=== PATIENT | female | born 1955 | race Caucasian/White ===

== ENCOUNTER 2020-05-01 10:41 | Inpatient (IN) | payer BC, OTHER ==
[~2020-05-01] VITALS: Ht 157.5 cm; Wt 62.6 kg
[~2020-05-01 10:41] MED LIST: ALBU90OI6; PRED10 PO
[2020-05-01 11:06] LABS: BASOPHILS ABSOLUTE AUTO 0.06 K/mm3 (0.00-0.23); BASOPHILS PERCENT AUTO 1 % (0-2); EOSINOPHILS ABSOLUTE AUTO 0.18 K/mm3 (0.00-0.68); EOSINOPHILS PERCENT AUTO 3 % (0-6); Hematocrit 47.3 % (33.0-51.0); Hemoglobin 15.7 g/dL (11.5-16.0); IMMATURE GRAN ABSOLUTE AUTO 0.01 K/mm3 (0.00-0.10); IMMATURE GRAN PERCENT AUTO 0 % (0-1); LYMPHOCYTES ABSOLUTE AUTO 1.69 K/mm3 (0.84-5.20); LYMPHOCYTES PERCENT AUTO 23 % (21-46); MONOCYTES ABSOLUTE AUTO 0.79 K/mm3 (0.16-1.47); MONOCYTES PERCENT AUTO 11 % (4-13); Mean Corpuscular HGB Conc 33.2 g/dL (31.5-36.5); Mean Corpuscular Volume 96 fL (80-100); Mean Platelet Volume 9.1 fL (9.1-12.4); NEUTROPHILS ABSOLUTE AUTO 4.55 K/mm3 (1.96-9.15); NEUTROPHILS PERCENT AUTO 63 % (41-73); Platelet Count 326 K/mm3 (150-400); RDW Coefficient Variation 11.7 % (11.7-14.2); RDW Standard Deviation 41.2 fL (35.1-46.3); Red Blood Cell Count 4.91 M/mm3 (3.80-5.20); White Blood Cell Count 7.28 K/mm3 (4.00-11.30)
[2020-05-01 11:27] LABS: Alanine Aminotransfer (ALT/SGP 21 U/L (12-78); Alk Phos 66 U/L (50-136); Anion Gap 8 mmol/L (6-16); Aspartate Aminotrans (AST/SGOT 32 U/L (12-37); Bilirubin, Total 0.3 mg/dL (0.1-1.0); Blood Urea Nitrogen 9 mg/dL (8-24); Bun/Creatinine Ratio 12.5 (12.0-20.0); CO2, Blood 26 mmol/L (21-32); Calcium, Blood 9.3 mg/dL (8.5-10.1); Chloride, Blood 107 mmol/L (98-108); Creatinine, Blood 0.72 mg/dL (0.40-1.00); Glomerular Filtration Rate >60 (60-); Glucose, Blood 93 mg/dL (70-99); Potassium, Blood 3.9 mmol/L (3.5-5.5); Sodium, Blood 141 mmol/L (136-145)
[2020-05-01 12:22] LABS: International Normalized Ratio 0.9; Prothrombin Time Results 9.7 Sec (9.7-11.5)
--- NOTE | 2020-05-01 17:49 | NUR ---
PCU ADMIT & TRANSFER TO ICU SUMMARY PATIENT ARRIVED TO PCU AT APPROX 1430. AMBULATED TO BATHROOM AND VOIDED - STEADY GAIT NOTED. PATIENT REPORTED CONTINUED CHEST PAIN/PRESSURE. MD SHEFFIELD TO ROOM. HEPARIN GTT STARTED AND PATIENT MEDICATED PER EMAR. PATIENT CONTINUED TO HAVE CHEST PAIN/PRESSURE - MD SHEFFIELD NOTIFIED - NITRO GIVEN. CONTINUED CHEST PAIN 5/10 PER PATIENT DOWN TO 3/10 WITH NITRO. TROP INCREASE PER LAB - JOHN SHEFFIELD NOTIFIED. PATIENT TRANSFERED TO ICU FOR NITRO GTT. REPORT GIVEN TO JOE WHALEY. PATIENT MOVED TO ICU 9 ON UNIT BED.
--- NOTE | 2020-05-01 18:15 | NUR ---
NITROGLYCERIN Per Dr Crabtree, if patient has chest pain tonight, medicate with SL nitroglycerin before utilizing nitroglycerin drip.
--- NOTE | 2020-05-01 18:29 | NUR ---
ICU TRANSFER Assumed care of pt upon arrival to ICU 9 at 1715 from PCU 13. Pt transferred to ICU for nitro drip. Bedside report received from Krista TRAN. On arrival to unit, pt denied chest pain- therefore nitro drip was not started. Drip available at bedside at this time. Pt reports chest pain started on . Stated it would come and go. Pointed to left pectroral area for pain location. Described pain as "kind of like pressure but kind of like frostbite" elaborating that the sensation was a tingle/burn. Stated pain would worsen with activity. Stated she presented to the ER today as pain did not improve and she was lethargic, which is unusual for her. Pt is a highly active person at baseline. On assessment, pt is A&O x 4. Mobilizes without difficulty, however pt verbalizes understanding that she is not to stand or ambulate without staff in room. Lungs clear. Pt on 2 LPM NC, initially. SpO2 99%. Pt placed on room air. SpO2 90% or greater. SR per monitor. BP stable. Continues to deny chest pain. Distal BLE pulses 2+. No peripheral edema. ABD soft, nontender, nondistended. Dr Aguilera in to see pt at 1815. Plans for coronary angiogram tomorrow. Pt to be NPO after midnight.
--- NOTE | 2020-05-01 19:54 | NUR ---
ASSUMED CARE NOTE: ASSUMED CARE OF PT AT 1900, RECEVIED REPORT FROM JOE TRAN. PT IS A&OX3, MEMORY INTACT. PT IS ON RA WITH SPO2 ABOVE 95%, LUNG SOUNDS ARE CLEAR T/O. PT IS IN NSR WITH HR IN THE 80'S. PT DENIES ANY CHEST PAIN AT THIS TIME. VSS, AFEBRILE. BOWEL TONES ACTIVE IN ALL FOUR QUADRANTS. PULSES STRONG T/O. HEPARIN INFUSING AT 13U/KG/HR, IV PUMP VERIFIED WITH JOE TRAN DURING REPORT. PHARMACY NOTIFIED OF START TIME. PT IS STEADY ON FEET AND CAN AMBULATE TO BEDSIDE TOILET WITH SBA DUE TO CORDS/LINES. PT'S URINE IS YELLOW AND CLEAR. WILL CONTINUE TO MONITOR PT T/O SHIFT. BED AT LOWEST LEVEL, CALL LIGHT WITHIN REACH/
[2020-05-02 02:22] LABS: BASOPHILS ABSOLUTE AUTO 0.05 K/mm3 (0.00-0.23); BASOPHILS PERCENT AUTO 1 % (0-2); EOSINOPHILS ABSOLUTE AUTO 0.15 K/mm3 (0.00-0.68); EOSINOPHILS PERCENT AUTO 2 % (0-6); Hemoglobin 14.4 g/dL (11.5-16.0); IMMATURE GRAN ABSOLUTE AUTO 0.02 K/mm3 (0.00-0.10); IMMATURE GRAN PERCENT AUTO 0 % (0-1); LYMPHOCYTES ABSOLUTE AUTO 1.06 K/mm3 (0.84-5.20); LYMPHOCYTES PERCENT AUTO 14 % (21-46); MONOCYTES ABSOLUTE AUTO 0.98 K/mm3 (0.16-1.47); MONOCYTES PERCENT AUTO 13 % (4-13); Mean Corpuscular HGB 31.9 pg (26.0-34.0); Mean Corpuscular HGB Conc 32.7 g/dL (31.5-36.5); Mean Corpuscular Volume 97 fL (80-100); Mean Platelet Volume 9.1 fL (9.1-12.4); NEUTROPHILS ABSOLUTE AUTO 5.33 K/mm3 (1.96-9.15); NEUTROPHILS PERCENT AUTO 70 % (41-73); NRBC ABSOLUTE 0.04 K/mm3 (0.00-0.02); NRBC Auto 0.5 /100 WBC (0.0-0.2); Platelet Count 310 K/mm3 (150-400); RDW Coefficient Variation 11.7 % (11.7-14.2); RDW Standard Deviation 42.3 fL (35.1-46.3); Red Blood Cell Count 4.52 M/mm3 (3.80-5.20); White Blood Cell Count 7.59 K/mm3 (4.00-11.30)
[2020-05-02 02:34] LABS: Anion Gap 7 mmol/L (6-16); Blood Urea Nitrogen 11 mg/dL (8-24); Bun/Creatinine Ratio 14.6 (12.0-20.0); CHOL/HDL RATIO 2.7; CO2, Blood 27 mmol/L (21-32); Chloride, Blood 106 mmol/L (98-108); Cholesterol 198 mg/dL (50-200); Creatinine, Blood 0.75 mg/dL (0.40-1.00); Glomerular Filtration Rate >60 (60-); Glucose, Blood 106 mg/dL (70-99); HDL Cholesterol 74 mg/dL (>39); LDL/HDL RATIO 1.4; Low Density Lipoprotein Chol 106 mg/dL (0-110); Potassium, Blood 4.2 mmol/L (3.5-5.5); Sodium, Blood 140 mmol/L (136-145); Triglycerides 90 mg/dL (30-160); Very Low Density Lipoprot Chol 18 mg/dL (6-32)
--- NOTE | 2020-05-02 06:00 | NUR ---
SHIFT SUMMARY: NO CHANGES TO SHIFT. PT CONTINUED TO DENY CHEST PAIN T/O SHIFT. PT SLEPT FOR THE MAJORITY OF THE SHIFT. WAS ABLE TO USE CALL LIGHT AND CALL FOR ASSISSTANCE TO THE TOILET. PT IN NSR WITH HR IN THE 80'S. VSS. PT REMAINED ON RA, WITH SPO2 ABOVE 95% PT HAD GOOD URINE OUTPUT. PT WAS MADE NPO AT MIDNIGHT FOR CATH PROCEDURE THIS AM. REPORT WAS GIVEN TO JAY TRAN.
--- NOTE | 2020-05-02 07:26 | NUR ---
ASSUMED CARE / TEACHER LEARNING DISABLED: REPORT RECEIVED FROM TUCKER Flannery RN. ASSUMED CARE OF THIS PT AT APPROX 0700. ON ASSESSMENT, THE PT IS AWAKE, A&O. SHE TRANSFERS FROM BED TO TOILET W/ SBA FOR CORD/LINE MANAGEMENT. LS ARE CLEAR T/O, PT ON RA W/ O2 SATS > 92%. MONITOR SHOWS SR W/ HR 70-80s, BP STABLE. PT DENIES CP OR ANY PAIN AT THIS TIME. HEPARIN DRIP PER EMAR AT 15 U/KG/HR, VERIFIED W/ TUCKER Flannery RN. PT HAS NO GI COMPLAINTS OTHER THAN HUNGER, SHE HAS BEEN NPO SINCE [place] PENDING ANGIOGRAM THIS AM. PT VOIDS W/O DIFFICULTY. SKIN OVERALL CDI. TEACHER LEARNING DISABLED RNs AT BEDSIDE TO PREP & TAKE PT. HEPARIN DRIP PLACED ON STANDBY PER TEACHER LEARNING DISABLED STAFF. PT HAS BEEN TAKEN OUT OF ROOM AT 0720. WILL AWAIT RETURN.
--- NOTE | 2020-05-02 08:30 | NUR ---
RETURN FROM RADAR MECHANIC: PT BACK TO ROOM ICU09 AT APPROX 0830. TR BAND TO R RADIAL W/ [address]. PT HAS RECEIVED ONE STENT TO THE MID LAD & BALLOONING TO DIAG OF LAD. SHE DENIES ANY PAIN AT THIS TIME, IS A&O, PLEASANT & COOPERATIVE. BRILLINTA GIVEN PER RADAR MECHANIC, CHELSEA Greenwood STS THAT PLAVIX & ASA IS STILL TO BE GIVEN W/ SCHEDULED AM MEDS. POST-OP VS IN PROGRESS & PT TOLERATING PO INTAKE WELL AT THIS TIME.
--- NOTE | 2020-05-02 09:30 | NUR ---
DR MALONEY: PROVIDER AT BEDSIDE TO EVAL PT. SHE STS NO CHANGES TO POC AT THIS TIME. SHE WOULD LIKE UPDATED ONCE DR CHIANG SEES THE PT AGAIN & UPDATES POC.
--- NOTE | 2020-05-02 10:25 | NUR ---
DR MELCHOR: PROVIDER AT BEDSIDE TO EVAL PT, ECHO CURRENTLY BEING COMPLETED ALSO. PROVIDER STS SHE BELIEVES THAT THE PT SHOULD BE ABLE TO D/C HOME THIS AFTERNOON IF SHE REMAINS STABLE W/ TR BAND SITE WNL & IS ABLE TO AMBULATE SAFELY W/O CHEST PAIN ON EXERTION. SHE WOULD LIKE TO BE CALLED THIS AFTERNOON & UPDATED ON PT STATUS.
[2020-05-02] MEDS ORDERED: ASPIR 8181 M1 PO (14:05)
[2020-05-02] MEDS ORDERED: ATOR20 PO (14:09)
[2020-05-02] MEDS ORDERED: CLOP75 PO (14:10)
[2020-05-02] MEDS ORDERED: LISI20 PO (14:13)
[2020-05-02] MEDS ORDERED: Metoprolol Tart25 MG PO (14:15)
[2020-05-02] MEDS ORDERED: NITR.4SL SL (14:16)
[2020-05-02] MEDS ORDERED: PANT20 PO (14:16)
--- NOTE | 2020-05-02 16:09 | NUR ---
Per admit trigger, I met with Keiko to offer encouragement and prayer. She expresses gratitude for compasionate care by [facility] staff. She is also happy to be better and returning home tomorrow. We spoke about her cardiac event and how this was "eye-opening" for her. Facilitated life review and gratitude list. WE had an easy rapport. No needs/concerns presented. She feel well-loved and supported by family. D/C tomorrow? I will remain available.
--- NOTE | 2020-05-02 17:33 | NUR ---
DISCHARGE TO HOME: PT CONTINUES TO BE FREE OF CP W/ STABLE RADIAL ACCESS SITE & AMBULATES W/O DIFFICULTY. DR GUSTAFSON HAS BEEN NOTIFIED & STS THAT PT IS CLEAR TO D/C FROM CARDIOLOGY STANDPOINT. DR MALONEY HAS BEEN NOTIFIED OF THIS & D/C ORDERS PLACED. PT AMBULATED OUT OF UNIT AT 1725 W/ SLICK S, PCT. D/C TEACHING IS COMPLETED. D/C PACKET & ALL BELONGINGS HAVE BEEN BEEN TAKEN OUT W/ PT. PLAVIX CONTRACT SIGNED & PT VERBALIZES UNDERSTANDING OF RADIAL SITE PRECAUTIONS. EDUCATION REGARDING ALL NEW MEDICATIONS & RADIAL SITE CARE HAVE BEEN PROVIDED TO PT. F/U APPOINTMENTS W/ CARDIOLOGY & PCP HAVE BEEN MADE. PIVs & ALL MONITORS REMOVED.
== END 2020-05-02 17:25 | disposition home or self-care (01) | DRG 247 ==
LOC: ER 10:41 → ICUW 11:56 → ERHOLD 11:56 → PCU 13:45 → ICUW 13:46 → PCU 17:10 → ICUW 17:16
PROVIDERS: Emergency Medicine; ADMIT Internal Medicine
PROC: 027034Z Dilation of Coronary Artery, One Artery with Drug-eluting Intraluminal Device, Percutaneous Approach (ICD-10-PCS; principal; 2020-05-02)
PROC: 02713ZZ Dilation of Coronary Artery, Two Arteries, Percutaneous Approach (ICD-10-PCS; 2020-05-02)
PROC: B240ZZ3 Ultrasonography of Single Coronary Artery, Intravascular (ICD-10-PCS; 2020-05-02)
PROC: B2111ZZ Fluoroscopy of Multiple Coronary Arteries using Low Osmolar Contrast (ICD-10-PCS; 2020-05-02)
DX: I21.4 Non-ST elevation (NSTEMI) myocardial infarction (principal); Z87.891 Personal history of nicotine dependence; J98.4 Other disorders of lung; M17.11 Unilateral primary osteoarthritis, right knee; I10 Essential (primary) hypertension; R91.8 Other nonspecific abnormal finding of lung field; D86.0 Sarcoidosis of lung
CPT/HCPCS: 36415; 71046; 76937; 80048; 80053; 80061; 84484; 85025; 85347; 85610; 85730; 92921; 92978; 93005; 93010; 93306; 93454; 96374; 96375; 99152; 99153; 99285-25; A9270-GY; C1725; C1753; C1769; C1874; C1887; C1894; C9113; C9600; J1644; J2250; J2270; J2405; J3010; J7030; Q9967

== ENCOUNTER 2020-05-03 13:15 | Emergency (ER) | payer BC ==
[~2020-05-03] VITALS: Ht 157.5 cm; Wt 66.2 kg
[~2020-05-03 13:15] MED LIST changes: +ASPIR 8181 M1 PO; +ATOR20 PO; +CLOP75 PO; +LISI20 PO; +Metoprolol Tart25 MG PO; +NITR.4SL SL; +PANT20 PO
[2020-05-03 13:52] LABS: BASOPHILS ABSOLUTE AUTO 0.05 K/mm3 (0.00-0.23); BASOPHILS PERCENT AUTO 1 % (0-2); EOSINOPHILS ABSOLUTE AUTO 0.12 K/mm3 (0.00-0.68); EOSINOPHILS PERCENT AUTO 2 % (0-6); Hematocrit 42.8 % (33.0-51.0); Hemoglobin 14.1 g/dL (11.5-16.0); IMMATURE GRAN ABSOLUTE AUTO 0.02 K/mm3 (0.00-0.10); IMMATURE GRAN PERCENT AUTO 0 % (0-1); LYMPHOCYTES ABSOLUTE AUTO 1.24 K/mm3 (0.84-5.20); LYMPHOCYTES PERCENT AUTO 19 % (21-46); MONOCYTES ABSOLUTE AUTO 0.77 K/mm3 (0.16-1.47); MONOCYTES PERCENT AUTO 12 % (4-13); Mean Corpuscular HGB 31.9 pg (26.0-34.0); Mean Corpuscular HGB Conc 32.9 g/dL (31.5-36.5); Mean Corpuscular Volume 97 fL (80-100); Mean Platelet Volume 9.2 fL (9.1-12.4); NEUTROPHILS ABSOLUTE AUTO 4.34 K/mm3 (1.96-9.15); NEUTROPHILS PERCENT AUTO 66 % (41-73); Platelet Count 310 K/mm3 (150-400); RDW Coefficient Variation 11.7 % (11.7-14.2); RDW Standard Deviation 42.1 fL (35.1-46.3); Red Blood Cell Count 4.42 M/mm3 (3.80-5.20); White Blood Cell Count 6.54 K/mm3 (4.00-11.30)
[2020-05-03 14:12] LABS: Alanine Aminotransfer (ALT/SGP 18 U/L (12-78); Albumin, Blood 3.7 g/dL (3.4-5.0); Albumin/Globulin Ratio 0.9 (0.8-1.8); Alk Phos 60 U/L (50-136); Anion Gap 5 mmol/L (6-16); Aspartate Aminotrans (AST/SGOT 27 U/L (12-37); Bilirubin, Total 0.6 mg/dL (0.1-1.0); Blood Urea Nitrogen 9 mg/dL (8-24); Bun/Creatinine Ratio 12.5 (12.0-20.0); CO2, Blood 29 mmol/L (21-32); Calcium, Blood 9.3 mg/dL (8.5-10.1); Chloride, Blood 105 mmol/L (98-108); Creatinine, Blood 0.72 mg/dL (0.40-1.00); Globulin, Blood 3.9 g/dL (2.2-4.0); Glomerular Filtration Rate >60 (60-); Glucose, Blood 104 mg/dL (70-99); Potassium, Blood 4.1 mmol/L (3.5-5.5); Sodium, Blood 139 mmol/L (136-145); Total Protein, Blood 7.6 g/dL (6.4-8.2)
[2020-05-03 15:21] LABS: Thyroid Stimulating Hormone 4.93 uIU/mL (0.360-4.800)
== END 2020-05-03 15:52 | disposition home or self-care (01) ==
LOC: ER 13:15
PROVIDERS: Emergency Medicine
DX: R00.2 Palpitations (principal); I25.10 Atherosclerotic heart disease of native coronary artery without angina pectoris; I10 Essential (primary) hypertension; I25.2 Old myocardial infarction; Z88.0 Allergy status to penicillin; Z88.1 Allergy status to other antibiotic agents; Z79.899 Other long term (current) drug therapy; Z79.82 Long term (current) use of aspirin; Z79.02 Long term (current) use of antithrombotics/antiplatelets; Z87.891 Personal history of nicotine dependence
CPT/HCPCS: 36415; 71045; 80053; 83735; 84443; 85025; 93005; 93010; 99285-25

== ENCOUNTER 2023-11-19 06:25 | Day surgery (SDC) | payer OTHER ==
[~2023-11-19] VITALS: Ht 157.5 cm; Wt 57.8 kg
[~2023-11-19 06:25] MED LIST changes: -ATOR20 PO; +ATOR40TA PO; +LISI10 PO; -LISI20 PO; +PANTOPRAZOLE SO40 M2 PO
--- NOTE | 2023-11-19 07:10 | NUR ---
11/19/23 0710 Jessica Cotto TETRACAINE PLACED IN RIGHT EYE AT 0658. PLEDGET PLACED IN RIGHT EYE AT 0700. PT TOLERATED WELL.
[2023-11-19 08:35] VITALS: BP 138/80
[2023-11-20] MEDS ORDERED: Aspir 8181 MG PO (13:42)
[2023-11-20] MEDS ORDERED: NITR.4SL SL (13:43)
== END 2023-11-19 08:35 | disposition home or self-care (01) ==
LOC: ORSCSDS 06:25
PROVIDERS: Student in an Organized Health Care Education/Training Program
PROC: 08RJ3JZ Replacement of Right Lens with Synthetic Substitute, Percutaneous Approach (ICD-10-PCS; principal; 2023-11-19 08:00)
DX: H25.13 Age-related nuclear cataract, bilateral (principal); I10 Essential (primary) hypertension; D86.9 Sarcoidosis, unspecified; I25.10 Atherosclerotic heart disease of native coronary artery without angina pectoris; Z79.82 Long term (current) use of aspirin; Z79.899 Other long term (current) drug therapy; Z87.891 Personal history of nicotine dependence
CPT/HCPCS: J2001; J2250; J3010; J7040; V2632

== ENCOUNTER 2023-12-03 06:05 | Day surgery (SDC) | payer OTHER ==
[~2023-12-03] VITALS: Ht 157.5 cm; Wt 60.4 kg
[~2023-12-03 06:05] MED LIST changes: +Aspir 8181 MG PO
[2023-12-03 08:01] VITALS: BP 131/91
== END 2023-12-03 08:17 | disposition home or self-care (01) ==
LOC: ORSCSDS 06:05
PROVIDERS: Student in an Organized Health Care Education/Training Program
PROC: 08RK3JZ Replacement of Left Lens with Synthetic Substitute, Percutaneous Approach (ICD-10-PCS; principal; 2023-12-03 07:30)
DX: H25.12 Age-related nuclear cataract, left eye (principal); Z96.1 Presence of intraocular lens; H21.81 Floppy iris syndrome; H35.30 Unspecified macular degeneration; I25.2 Old myocardial infarction; I25.10 Atherosclerotic heart disease of native coronary artery without angina pectoris; I10 Essential (primary) hypertension; Z87.891 Personal history of nicotine dependence; Z79.82 Long term (current) use of aspirin; Z79.899 Other long term (current) drug therapy
CPT/HCPCS: J2001; J2250; J3010; J7040; V2632

== ENCOUNTER → 2024-11-12 | Outpatient (CLI) | payer OTHER ==
[2024-11-12 13:29] LABS: BASOPHILS ABSOLUTE AUTO 0.06 K/mm3 (0.00-0.23); BASOPHILS PERCENT AUTO 1 % (0-2); EOSINOPHILS ABSOLUTE AUTO 0.33 K/mm3 (0.00-0.68); EOSINOPHILS PERCENT AUTO 7 % (0-6); Hematocrit 39.4 % (33.0-51.0); Hemoglobin 13.4 g/dL (11.5-16.0); IMMATURE GRAN ABSOLUTE AUTO 0.01 K/mm3 (0.00-0.10); IMMATURE GRAN PERCENT AUTO 0 % (0-1); LYMPHOCYTES ABSOLUTE AUTO 0.98 K/mm3 (0.84-5.20); LYMPHOCYTES PERCENT AUTO 20 % (21-46); MONOCYTES ABSOLUTE AUTO 0.69 K/mm3 (0.16-1.47); MONOCYTES PERCENT AUTO 14 % (4-13); Mean Corpuscular HGB 32.2 pg (26.0-34.0); Mean Corpuscular Volume 95 fL (80-100); Mean Platelet Volume 9.3 fL (9.1-12.4); NEUTROPHILS PERCENT AUTO 58 % (41-73); Platelet Count 370 K/mm3 (150-400); RDW Coefficient Variation 11.8 % (11.7-14.2); RDW Standard Deviation 40.4 fL (35.1-46.3); Red Blood Cell Count 4.16 M/mm3 (3.80-5.20); White Blood Cell Count 4.97 K/mm3 (4.00-11.30)
[2024-11-12 14:18] LABS: C-REACTIVE PROTEIN, EXT RANGE <0.290 mg/dL (0.000-0.300); Very Low Density Lipoprot Chol 15 mg/dL (6-32)
[2024-11-12 14:23] LABS: Alanine Aminotransfer (ALT/SGP 19 U/L (12-78); Albumin, Blood 3.7 g/dL (3.4-5.0); Albumin/Globulin Ratio 1.1 (0.8-1.8); Alk Phos 55 U/L (50-136); Anion Gap 9 mmol/L (3-11); Aspartate Aminotrans (AST/SGOT 17 U/L (12-37); Bilirubin, Total 0.3 mg/dL (0.1-1.0); Blood Urea Nitrogen 12 mg/dL (8-24); Bun/Creatinine Ratio 17.9 (12.0-20.0); CHOL/HDL RATIO 2.3; CO2, Blood 28 mmol/L (21-32); Calcium, Blood 9.4 mg/dL (8.5-10.1); Chloride, Blood 105 mmol/L (98-108); Cholesterol 196 mg/dL (50-200); Creatinine, Blood 0.67 mg/dL (0.40-1.00); Globulin, Blood 3.3 g/dL (2.2-4.0); Glomerular Filtration Rate 96 (60-); Glucose, Blood 96 mg/dL (70-99); HDL Cholesterol 84 mg/dL (>39); LDL/HDL RATIO 1.2; Low Density Lipoprotein Chol 97 mg/dL (0-110); Potassium, Blood 3.8 mmol/L (3.5-5.5); Sodium, Blood 138 mmol/L (136-145); Triglycerides 75 mg/dL (30-160)
== END ==
LOC: LAB SHORT 12:02 → LAB 12:02
PROVIDERS: Family Medicine
DX: I10 Essential (primary) hypertension (principal); R53.83 Other fatigue; D86.0 Sarcoidosis of lung
CPT/HCPCS: 80053; 80061; 84443; 85025; 85651; 86140

== ENCOUNTER 2025-06-08 05:41 | Day surgery (SDC) | payer MEDICARE ==
[~2025-06-08] VITALS: Ht 154.9 cm; Wt 54.0 kg
[2025-06-08] VITALS (13 sets, daily range): BP systolic 93–179; BP diastolic 64–94
[~2025-06-08 05:41] MED LIST changes: +Preservision S1 EACH PO; +TURMERIC500 M2 PO
[2025-06-08] MEDS ORDERED: CeFAZolin Sodium 2,000 MG in NS 100 ML IV SCH ×3 (06:15→16:00)
[2025-06-08] MEDS ORDERED: Chlorhexidine Mouth Care 15 ML UDC MT SCH (06:15)
[2025-06-08] MEDS ORDERED: Ropivacaine 0.5% HCl/Pf 123.125 MG,EPINEPHrine HCL 0.25 MG,Ketorolac Tromethamine 15 MG... INFIL SCH (06:15)
--- NOTE | 2025-06-08 06:30 | NUR ---
AMBULATORY INTO [facility]. PT REPORTS 4/10 RIGHT LOWER BACK AND HIP PAIN. HISTORY AND ALLERGIES REVIEWED.LUNGS CLEAR. PT DENIES SOB. SATS>90% ON RA. NPO STATUS CONFIRMED. CHLORHEXIDINE SHOWER X 5 DAYS AND MSSA NASAL SWAB PROTOCOL. CHLORHEXIDINE WIPE X 2. PT BELONGINGS IN BAG BELOW [facility].
[2025-06-08] MEDS ORDERED: Bupivacaine 0.5% Inj 10 ML Vial ONE (06:31)
[2025-06-08] MEDS ORDERED: Dexmedetomidine HCL 200 MCG / 2 ML ONE (06:31)
[2025-06-08] MEDS ORDERED: Tranexamic Acid 100 ML IV SCH (06:33)
[2025-06-08] MEDS ORDERED: Dexamethasone Sod Phos 10 MG/ML 1ML VIAL ONE (06:39)
[2025-06-08] MEDS ORDERED: Ketorolac Tromethamine 30mg Vial ONE (06:39)
[2025-06-08] MEDS ORDERED: Ondansetron HCl 2 MG / ML 2ML Vial ONE (06:39)
[2025-06-08] MEDS ORDERED: CeFAZolin Sodium 2,000 MG VIAL ONE (06:45)
--- NOTE | 2025-06-08 07:08 | NUR ---
PT RIGHT NARE STARTED BLEEDING AFTER SHE USED THE NOSIN. PT APPLIED PRESSURE TO RIGHT NARE. PT STATES THAT SHE GETS A BLOODY NOSE FREQUENTLY.
[2025-06-08] MEDS ORDERED: ePHEDrine Sulfate 50 MG/ML 1ML Injection ONE (07:15)
[2025-06-08] MEDS ORDERED: HYDROmorphone HCl/Pf 1MG SYR ONE (07:16)
[2025-06-08] MEDS ORDERED: Phenylephrine HCl 100 MCG/ML-NS 10MLSYR (1MG/10ML) ONE (08:05)
[2025-06-08] MEDS ORDERED: Ondansetron HCl 2 MG / ML 2ML Vial IV PRN ×3 (08:35→10:55)
[2025-06-08] MEDS ORDERED: Metoclopramide HCl 5MG / ML 2ML Vial IV PRN ×3 (08:35→10:50)
[2025-06-08] MEDS ORDERED: FentaNYL Citrate 50 MCG/ML 2 ML Injection IV PRN ×3 (08:40)
[2025-06-08] MEDS ORDERED: HYDROmorphone HCl/Pf 1MG SYR IV PRN ×3 (08:40→10:45)
[2025-06-08] MEDS ORDERED: Albuterol 2.5 MG/3 ML VIAL INH PRN (08:40)
--- NOTE | 2025-06-08 09:54 | NUR ---
PT ARRIVED TO UNIT AT APROX 0945 FROM PACU. DRESSING TO R HIP C/D/I. PT IS ABLE TO WIGGLE TOES BUT DENIES SENSATION TO BLE. VSS UPON ARRIVAL TO UNIT. WILL REPORT TO PRIMARY RN.
[2025-06-08] MEDS ORDERED: Prochlorperazine Edisylate 10 mg Vial IV PRN ×2 (10:05→10:50)
[2025-06-08] MEDS ORDERED: Magnesium Hydroxide Conc 10 ML UDC PO PRN (10:45)
[2025-06-08] MEDS ORDERED: ELIQUIS2.5 MG PO (11:42)
[2025-06-08] MEDS ORDERED: Ketorolac Tromethamine 15mg Vial IV SCH (12:00)
--- NOTE | 2025-06-08 14:38 | NUR ---
discharge s/p r sivakumar pt ambulating well, pain controlled well per emar. dressing remains cdi. all belongings with patient. discharge instructions gone over with patient and spouse. following precautions. escorted out via wheelchair. able to void multiple times prior to discharge.
[2025-06-09] MEDS ORDERED: Beta-Carotene (A) W-C & E/Min 1 Tab PO SCH (09:00)
== END 2025-06-08 14:40 | disposition home or self-care (01) ==
LOC: ORSCMMR 05:41 → ORD 07:30 → ORSCMMR 07:30 → SURS 09:41 → ORSCMMR 09:41 → SURS 14:40 → ORSCMMR 14:40
PROVIDERS: Orthopaedic Surgery
PROC: 0SR90JZ Replacement of Right Hip Joint with Synthetic Substitute, Open Approach (ICD-10-PCS; principal; 2025-06-08 07:30)
DX: M16.11 Unilateral primary osteoarthritis, right hip (principal); I10 Essential (primary) hypertension; I25.10 Atherosclerotic heart disease of native coronary artery without angina pectoris; I25.2 Old myocardial infarction
CPT/HCPCS: 73502; 97116; 97161; 97530; A9270; C1776; J0165; J0690; J0735; J1100; J1171; J1885; J2371; J2405; J2704; J2795; J7120

== ENCOUNTER 2025-07-10 09:42 | Emergency (ER) | payer MEDICARE ==
[~2025-07-10] VITALS: Ht 152.4 cm; Wt 56.7 kg
[~2025-07-10 09:42] MED LIST changes: +ELIQUIS2.5 MG PO
[2025-07-10 10:30] LABS: BASOPHILS ABSOLUTE AUTO 0.06 K/mm3 (0.00-0.23); BASOPHILS PERCENT AUTO 1 % (0-2); EOSINOPHILS ABSOLUTE AUTO 0.36 K/mm3 (0.00-0.68); EOSINOPHILS PERCENT AUTO 4 % (0-6); Hematocrit 40.2 % (33.0-51.0); Hemoglobin 13.2 g/dL (11.5-16.0); IMMATURE GRAN ABSOLUTE AUTO 0.03 K/mm3 (0.00-0.10); IMMATURE GRAN PERCENT AUTO 0 % (0-1); LYMPHOCYTES ABSOLUTE AUTO 0.84 K/mm3 (0.84-5.20); LYMPHOCYTES PERCENT AUTO 9 % (21-46); MONOCYTES ABSOLUTE AUTO 1.04 K/mm3 (0.16-1.47); MONOCYTES PERCENT AUTO 11 % (4-13); Mean Corpuscular HGB Conc 32.8 g/dL (31.5-36.5); Mean Corpuscular Volume 97 fL (80-100); NEUTROPHILS ABSOLUTE AUTO 6.91 K/mm3 (1.96-9.15); NEUTROPHILS PERCENT AUTO 75 % (41-73); NRBC ABSOLUTE 0.00 K/mm3 (0.00-0.02); NRBC Auto 0.0 /100 WBC (0.0-0.2); Platelet Count 392 K/mm3 (150-400); RDW Coefficient Variation 12.1 % (11.7-14.2); RDW Standard Deviation 43.5 fL (35.1-46.3)
[2025-07-10] MEDS ORDERED: FentaNYL Citrate 50 MCG/ML 2 ML Injection IV ONE (10:35)
[2025-07-10] MEDS ORDERED: Ondansetron HCl 2 MG / ML 2ML Vial IV ONE (10:35)
[2025-07-10 10:45] LABS: Alanine Aminotransfer (ALT/SGP 23.0 U/L (12-78); Albumin, Blood 3.3 g/dL (3.4-5.0); Albumin/Globulin Ratio 0.8 (0.8-1.8); Anion Gap 6.0 mmol/L (3-11); Aspartate Aminotrans (AST/SGOT 16.0 U/L (12-37); Bilirubin, Total 0.2 mg/dL (0.1-1.0); Blood Urea Nitrogen 11.0 mg/dL (8-24); CO2, Blood 30.0 mmol/L (21-32); Calcium, Blood 9.7 mg/dL (8.5-10.1); Chloride, Blood 103.0 mmol/L (98-108); Creatinine, Blood 0.58 mg/dL (0.40-1.00); Globulin, Blood 4.2 g/dL (2.2-4.0); Glucose, Blood 105.0 mg/dL (70-99); Potassium, Blood 4.4 mmol/L (3.5-5.5); Sodium, Blood 135.0 mmol/L (136-145); Total Protein, Blood 7.5 g/dL (6.4-8.2)
[2025-07-10 11:59] LABS: Source, Urine Clean Catch
[2025-07-10 12:00] VITALS: BP 143/82
[2025-07-10 12:07] LABS: Bilirubin, Urine Neg (Neg); Color, Urine Yellow (P-Yellow); Glucose Qualitative, Urine Neg (Neg); Ketones, Urine Neg (Neg); Leukocyte Esterase, Urine Neg (Neg); Protein, Urine Neg (Neg); Specific Gravity, Urine 1.015 (1.003-1.022); Urobilinogen, Urine NORM (Normal)
[2025-07-10] MEDS ORDERED: OxyCODONE 7.5 mg/Acetam 325 mg TABLET PO ONE (12:15)
[2025-07-10] MEDS ORDERED: CYCL10 PO (12:25)
== END 2025-07-10 12:42 | disposition home or self-care (01) ==
LOC: ER 09:42
PROVIDERS: Emergency Medicine
DX: M25.511 Pain in right shoulder (principal); M54.6 Pain in thoracic spine; D86.9 Sarcoidosis, unspecified; I25.2 Old myocardial infarction; Z87.891 Personal history of nicotine dependence; Z79.899 Other long term (current) drug therapy; Z88.0 Allergy status to penicillin; Z88.1 Allergy status to other antibiotic agents
CPT/HCPCS: 71045; 80053; 81003; 84484; 85025; A9270; J2405; J3010